=== PATIENT | male | born 1980 | race Two or more races ===

== ENCOUNTER 2024-03-31 21:29 | Emergency (ER) | payer MEDICAID, SELFPAY ==
[2024-03-31 21:29] VITALS: BMI 33.5
[2024-03-31 21:42] VITALS: BP 148/95; PULSE 115; RESP 18; TEMP 37.3; O2SAT 97
--- NOTE | 2024-03-31 21:43 | XR_ITS ---
Examination: Fingers, right hand third digit 3 views Technique: AP, oblique, lateral views right hand third digit 3 views. Exam date and time: March 31, 2024 2147 hrs. Indications: Onset redness swelling and pain involving the third digit several days Findings: Soft tissue swelling about the third digit No fracture No cortical bone destruction No opaque foreign body Impression: No cortical bone destruction noted
--- NOTE | 2024-03-31 21:44 | PD.EDRME ---
Rapid Medical Screening Exam RME Arrival date/time: 03/31/24 21:29 43 year old male present to Ed for c/o of right hand laceration last sat. + swelling/redness I have greeted and performed a focused initial assessment of this patient. A comprehensive ED assessment and evaluation of the patient, analysis of all test results, and completion of the medical decision making process will be conducted by additional ED providers. Chief Complaint: Hand/Wrist Problems Time Seen by Provider: 03/31/24 21:34 Vital signs: Vital Signs Temperature 99.2 F 03/31/24 21:42 Pulse Rate 115 H 03/31/24 21:42 Respiratory Rate 18 03/31/24 21:42 Blood Pressure 148/95 H 03/31/24 21:42 Pulse Oximetry (%) 97 03/31/24 21:42 Oxygen Delivery Method Room Air 03/31/24 21:42
[2024-03-31 22:22] LABS: Lactate (Lactic Acid) 0.9 mMol/L (0.4-2.0)
[2024-03-31 22:32] LABS: Basophils # (Auto) 0.1 Thou/mm3 (0.0-0.2); Basophils % (Auto) 0 % (0-2.5); Eosinophils % (Auto) 0 % (0-10); Hematocrit 41.5 % (41.0-53.0); Hemoglobin 14.6 g/dL (13.5-16.0); Immature Granulocytes % (Auto) 0 % (0-0); Immature Granulocytes Auto 0.08 Thou/mm3 (0.00-0.00); Lymphocytes # (Auto) 2.2 Thou/mm3 (1.0-4.8); Lymphocytes % (Auto) 12 % (10-50); Mean Corpuscular HGB Conc 35.2 g/dl (31.0-37.0); Mean Corpuscular Hemoglobin 29.1 pg (25.0-35.0); Mean Corpuscular Volume 83 fL (80-100); Monocytes # (Auto) 1.3 Thou/mm3 (0.0-0.8); Monocytes % (Auto) 7 % (0-12); Neutrophils # (Auto) 14.6 Thou/mm3 (1.8-7.7); Neutrophils % (Auto) 80 % (37-80); Nucleated Red Blood Cell % 0 /100 WBC (0); Platelet Count 221 Thou/mm3 (140-440); RDW Standard Deviation 39.6 fL (35.1-43.9); Red Blood Count 5.01 Miln/mm3 (4.50-5.90)
[2024-03-31 22:38] LABS: White Blood Count 18.3 Thou/mm3 (3.8-10.6)
[2024-03-31 22:40] LABS: Prothrombin Time 11.2 Seconds (9.0-12.2)
[2024-03-31 22:43] LABS: Sed Rate (ESR) 35 mm/hr (0-15)
[2024-03-31 23:12] LABS: Alanine Aminotransferase 21 U/L (10-49); Albumin, Serum 4.9 gm/dL (3.5-5.0); Albumin/Globulin Ratio 1.8 (1.2-2.2); Alkaline Phosphatase 85 U/L (46-116); Anion Gap 7 (7-16); Aspartate Amino Transferase 22 U/L (0-34); BUN/Creatinine Ratio 10 Ratio (12-20); Bilirubin,Total 0.8 mg/dL (0.3-1.2); Blood Urea Nitrogen 9 mg/dL (9-23); Calcium 10.1 mg/dL (8.3-10.6); Calcium (Corrected) 10.1 mg/dL (8.5-10.1); Carbon Dioxide 24.9 mMol/L (20.0-31.0); Chloride 99 mMol/L (98-107); Creatinine (Component) 0.9 mg/dL (0.6-1.3); Estimated Creatinine Clearance 127.7 mL/min (>60); Globulin 2.8 gm/dL (2.3-3.5); Glucose 181 mg/dL (74-106); Osmolality,Calculated 266 (275-295); Potassium 3.8 mMol/L (3.4-5.1); Procalcitonin 0.11 ng/ml (0.0-0.49); Sodium 131 mMol/L (136-145); Total Protein 7.7 gm/dL (5.7-8.2); eGFR > 60 See Note
[2024-03-31 23:48] VITALS: BP 129/89; PULSE 114; RESP 16; TEMP 37.1; O2SAT 97
[2024-04-01] MEDS: DIPHTH,PERTUSS(ACELL),TET VAC 0.5 ML VIAL IMi (00:05)
[2024-04-01] MEDS: AMPICILLIN/SULBAC INJ 3 GM in SODIUM CHLORIDE 0.9% (P) 100 ML IV (00:12)
[2024-04-01 00:26] VITALS: BP 139/80; PULSE 122; RESP 19; TEMP 37.1; O2SAT 97
[2024-04-01] MEDS: MethylPREDNISolone SOD SUCC 62.5 MG/ML 2ML VIAL 125 MG IVP (00:41)
[2024-04-01] MEDS: KETOROLAC INJ 30 MG/ML VIAL IVP (00:43)
--- NOTE | 2024-04-01 00:48 | PD.EDHAND ---
Upper Extremity Injury RME/HPI General Chief Complaint: Hand/Wrist Problems Stated Complaint: RT 3RD DIGIT FINGER SWELLING Time Seen by Provider: 03/31/24 21:34 Arrival date/time: 03/31/24 21:29 RME / HPI RME / HPI narrative: 03/31/24 21:29 43 year old male present to Ed for c/o of right hand laceration last sat. + swelling/redness I have greeted and performed a focused initial assessment of this patient. A comprehensive ED assessment and evaluation of the patient, analysis of all test results, and completion of the medical decision making process will be conducted by additional ED providers. This section includes all my notes and documentations, including HPI, PE, and ED course. Brian Troncoso MD HPI: 43-year-old male here with several days of worsening swelling and redness of the right middle finger. And a week history of left great toe pain and swelling and redness. He injured his right middle finger with a tool several days ago. No fever or chills or bodyaches or malaise. No other complaints. ROS: Musculoskeletal: negative except as documented in HPI. Skin: negative except as documented in HPI. Neurological: negative except as documented in HPI. Physical Exam: General: Alert and oriented. No acute distress. Eyes: Conjunctivae and lids clear. ENT: No nasal congestion. Neck: Supple. Heart: RRR. Lungs: No respiratory distress. Skin: Warm and dry. Right middle finger remarkable for edema and erythema and calor with streaking up into the forearm. Left great toe remarkable for edema and erythema and calor with ingrown nail medially. Neuro: Alert and oriented X 3. I reviewed all diagnostic test results. My interpretation of the right 3rd finger x-rays is no acute findings. Blood tests remarkable for WBC 18.3, ESR 35, LA 0.9, procalcitonin 0.11, CRP 1.4. At this point, diagnoses include right 3rd finger cellulitis and left great toe cellulitis. Treatment here included Unasyn 3 g IV and Toradol 30 mg IV and Solu-Medrol addition 5 mg IV. Significant improvement noted subjectively and objectively. Recommended a trial of outpatient treatment. Based on my best medical judgment, made decision no further evaluation or treatment indicated at this time. Patient understands and agrees to the discharge instructions customized and printed, see below. Discharge Instructions from Dr. Troncoso printed for you: 1. After evaluation, you have severe infection of your right 3rd finger and left big toe. 2. Augmentin to kill the germs causing the infections. 3. Ibuprofen 800 mg every 6-8 hours today and tomorrow to decrease inflammation then as needed. Tylenol with codeine for severe pain. 4. To help the healing process, elevate right hand above your head level (place her hand on your head) and elevate your left foot above your waist level for 3 days as much as possible. 5. See a private doctor on 04/02/2024 for recheck. To make sure you are healing without complications. Because there is no one antibiotic that can kill all the germs out there. 6. Seek immediate medical care with fever, spreading redness, or with any concerns. Brian Troncoso MD Related Data Previous Rx's ?Medication ?Instructions ?Recorded Lantus U-100 Insulin 100 unit/mL 25 unit (0.25 mL) subcut QDAY 30 01/23/15 subcutaneous solution (insulin days #0 vials glargine) glipizide 5 mg tablet 5 mg PO QDAY 30 days #0 tabs 01/23/15 ibuprofen 800 mg tablet 800 mg PO TID PRN pain #30 tabs 11/02/21 clindamycin HCl 300 mg capsule 300 mg PO TID #21 caps 09/27/23 acetaminophen 300 mg-codeine 30 mg 2 tab PO TID PRN pain #20 tabs 04/01/24 tablet amoxicillin 875 mg-potassium 1 tab PO BID #20 tabs 04/01/24 clavulanate 125 mg tablet ibuprofen 800 mg tablet 800 mg PO Q8H PRN pain #30 tabs 04/01/24 Allergies Allergy/AdvReac Type Severity Reaction Status Date / Time No Known Allergies Allergy Verified 03/31/24 21:32 Course Quality Measures none Orders Category Date Time Status Saline [Insert IV] NOW Care 03/31/24 23:56 Completed XR finger RT min 2V Stat Exams 03/31/24 21:43 Completed Blood Culture (Lab) Stat Lab 03/31/24 22:00 Received CBC Stat Lab 03/31/24 21:56 Completed CMP [Comprehensive Metabolic Panel] Stat Lab 03/31/24 21:56 Completed CRP [C-Reactive Protein] Stat Lab 03/31/24 21:56 Completed ESR [Sed Rate (ESR)] Stat Lab 03/31/24 21:56 Completed INR [Prothrombin Time with INR] Stat Lab 03/31/24 21:56 Completed Lactic Acid [Lactate (Lactic Acid)] Stat Lab 03/31/24 21:56 Completed Procalcitonin Stat Lab 03/31/24 21:56 Completed Ampicillin/Sulbac Inj [Unasyn Inj] 3 gm Med 03/31/24 23:56 Discontinued Sodium Chloride 0.9% (P) [NS 0.9% mini bag] 100 ml IV X1 Ketorolac Inj [Toradol Inj] Med 03/31/24 22:45 Discontinued 30 mg IVP X1 ONE Ketorolac Inj [Toradol Inj] Med 04/01/24 00:34 Discontinued 30 mg IVP X1 ONE MethylPREDNISolone.* [SoluMEDROL Inj] Med 04/01/24 00:34 Discontinued 125 mg IVP X1 ONE Tet,Diphth,Pertuss(Acell)-Tdap [Boostrix Vacc] Med 03/31/24 23:56 Discontinued 0.5 ml IMI .ONCE ONE cefTRIAXone [Rocephin] 2 gm Med 03/31/24 22:47 Discontinued Sodium Chloride 0.9% (P) [Ns 0.9% (P)] 50 ml IV X1 Vital Signs Vital signs: Vital Signs Temperature 99.2 F 03/31/24 21:42 Pulse Rate 115 H 03/31/24 21:42 Respiratory Rate 18 03/31/24 21:42 Blood Pressure 148/95 H 03/31/24 21:42 Pulse Oximetry (%) 97 03/31/24 21:42 Oxygen Delivery Method Room Air 03/31/24 21:42 Extremity Injury Patient data External records reviewed:: None Clinical information provided by:: patient Social determinants that could affect healthcare access:: none Patient has the following chronic illnesses:: None How is presenting disease/condition affected by chronic disease/condition?: no chronic disease Evaluation data The following diagnostics were reviewed and interpreted by me:: lab results and radiology exam(s) Lab and/or radiology exams considered but not ordered:: None Interpretation Summary: Cellulitis Medications / Prescriptions Medications or Prescriptions considered but not ordered:: None Medication administrations:: Medication Administration History Discontinued Medications Diphtheria/Tetanus/Acell Pertussis (Diphth,Pertuss(Acell),Tet Vac 0.5 Ml Vial) 0.5 ml IMi .ONCE ONE Stop: 03/31/24 23:57 Last Admin: 04/01/24 00:05 Dose: 0.5 ml Documented By: NASH Ceftriaxone Sodium 2 gm/ (Sodium Chloride) 50 mls @ 100 mls/hr IV X1 ONE Stop: 03/31/24 23:16 Last Admin: 04/01/24 00:04 Dose: Not Given Documented By: NASH Non-Admin Reason: Cancelled by Provider Ampicillin Sodium/Sulbactam (Sodium 3 gm/ Sodium Chloride) 100 mls @ 200 mls/hr IV X1 ONE Stop: 03/31/24 23:57 Last Infusion: 04/01/24 00:44 Dose: Infused Documented By: Admin: 04/01/24 00:12 Dose: 200 mls/hr Documented By: NASH Ketorolac Tromethamine (Ketorolac Inj 30 Mg/Ml Vial) 30 mg IVP X1 ONE Stop: 03/31/24 22:46 Last Admin: 04/01/24 00:04 Dose: Not Given Documented By: NASH Non-Admin Reason: Cancelled by Provider Ketorolac Tromethamine (Ketorolac Inj 30 Mg/Ml Vial) 30 mg IVP X1 ONE Stop: 04/01/24 00:35 Last Admin: 04/01/24 00:43 Dose: 30 mg Documented By: NASH Methylprednisolone Sodium Succinate (Methylprednisolone Sod Succ 62.5 Mg/Ml 2ml Vial) 125 mg IVP X1 ONE Stop: 04/01/24 00:35 Last Admin: 04/01/24 00:41 Dose: 125 mg Documented By: NASH See chart Consultations Consultation(s) initiated? (list below): No Diagnosis Upper Extremity Injury Differential Diagnosis: sprain and strain of wrist, fracture of wrist, finger sprain, dislocation of finger, Colles' fracture and fracture of hand Most likely diagnosis given after review of the tests above:: Cellulitis Admission Indicated Admission indicated?: not indicated Admission Request Was there a request for admission?: No Disposition Plan Disposition Plan: Discharge Discharge Attestation Discharge Attestation: The patient and all family members were given an opportunity to ask questions and understood the discharge instructions. Discharge instructions specifically effects, indications for sooner follow up or return to the emergency department, and the expected course of current diagnosis. Patient condition: Stable Discharge Plan Plan Patient Disposition: HOME (Self Care) Prescriptions/Referrals Prescriptions/Med Rec: New acetaminophen-codeine 300-30 mg tablet 2 tab PO TID MDD 6 PRN (Reason: pain) Qty: 20 0RF amoxicillin-pot clavulanate 875-125 mg tablet 1 tab PO BID Qty: 20 0RF ibuprofen 800 mg tablet 800 mg PO Q8H PRN (Reason: pain) Qty: 30 0RF No Action insulin glargine [Lantus U-100 Insulin] 100 U/ML solution 25 unit Sub-Q QDAY 30 Days Qty: 0 1RF glipizide 5 MG tablet 5 mg PO QDAY 30 Days Qty: 0 0RF ibuprofen 800 mg tablet 800 mg PO TID PRN (Reason: pain) Qty: 30 0RF clindamycin HCl 300 mg capsule 300 mg PO TID Qty: 21 0RF Problem List Clinical Impression: Cellulitis of right middle finger, Cellulitis of great toe, left Patient/Caregiver Discharge Instructions Discharge Activity: activity as tolerated Education Materials: ED Cellulitis Additional Instructions: Discharge Instructions from Dr. Troncoso printed for you: 1. After evaluation, you have severe infection of your right 3rd finger and left big toe. 2. Augmentin to kill the germs causing the infections. 3. Ibuprofen 800 mg every 6-8 hours today and tomorrow to decrease inflammation then as needed. Tylenol with codeine for severe pain. 4. To help the healing process, elevate right hand above your head level (place her hand on your head) and elevate your left foot above your waist level for 3 days as much as possible. 5. See a private doctor on 04/02/2024 for recheck. To make sure you are healing without complications. Because there is no one antibiotic that can kill all the germs out there. 6. Seek immediate medical care with fever, spreading redness, or with any concerns. Print Language: [place] Stand Alone Forms: Tammy Award Info., Work/School Release, Patient Portal Info Letter
[2024-04-01 00:58] VITALS: BP 139/80; PULSE 98; RESP 16; TEMP 36.8; O2SAT 100
[2024-04-01 02:12] LABS: C-Reactive Protein 1.4 mg/dL (0.0-0.9)
== END 2024-04-01 00:58 | disposition home or self-care (01) ==
LOC: SERX 04-01 04:06
PROVIDERS: Physician Assistant; Emergency Provider Emergency Medicine; PCP Family Medicine
DX: L03.011 Cellulitis of right finger (principal); L03.032 Cellulitis of left toe; Z23 Encounter for immunization
CPT/HCPCS: 36415; 73140; 80053; 83605; 84145; 85025; 85610; 85652; 86140; 87040; 90471; 90715; 96365; 96375; 99284; J0295; J1885; J2919